=== PATIENT | male | born 1950 | race Caucasian/White ===

== ENCOUNTER 2021-02-04 14:24 | Inpatient (IN) ==
[2021-02-04 15:06] LABS: Basophils # 0.1 K/mcL (0.0-0.2); Basophils % 1.1 %; Eosinophils # 0.5 K/mcL (0.0-0.6); Eosinophils % 5.6 %; Hematocrit 41.5 % (37.5-50.1); Hemoglobin 12.2 g/dL (12.9-16.9); Immature Granulocytes % 0.4 % (0-4); Lymphocytes # 1.4 K/mcL (0.6-4.6); Lymphocytes % 17.6 %; Mean Corpuscular HGB Conc 29.4 g/dL (31.6-35.5); Mean Corpuscular Hemoglobin 29.2 pg (28.0-33.3); Mean Corpuscular Volume 99.3 fL (83.0-100.0); Mean Platelet Volume 9.5 fL (9.4-12.4); Monocytes # 1.1 K/mcL (0.0-1.3); Monocytes % 13.9 %; Platelet Count 293 K/mcL (140-400); Red Blood Count 4.18 M/mcL (4.19-5.50); Red Cell Distribution Width 12.8 % (11.5-14.5); Segmented Neutrophils % 61.4 %; White Blood Count 8.1 K/mcL (4.3-11.1)
[2021-02-04 15:22] LABS: BUN/Creatinine Ratio 25 (6-26); Blood Urea Nitrogen 27 mg/dL (8-23); Carbon Dioxide 38 mEq/L (23-29); Chloride 97 mEq/L (98-107); Glucose 113 mg/dL (70-105); Osmolality,Calculated 296 (280-300); Potassium 4.9 mEq/L (3.5-5.1); Sodium 140 mEq/L (136-145); Troponin I < 0.03 ng/mL (< 0.04); eGFR For African Americans > 60 (> 60); eGFR For Non-African Americans > 60 (> 60)
[2021-02-04] MEDS ORDERED: Naloxone 0.4 MG/ML INJ IVP PRN (15:34)
[2021-02-04 15:38] LABS: Influenza A PCR Negative (Negative); Influenza B PCR Negative (Negative); Resp. Syncytial Virus PCR Negative (Negative); SARS-CoV-2 by PCR (In House) Negative (Negative)
[2021-02-04] MEDS ORDERED: Ondansetron 4 MG/2 ML VIAL IVP PRN (16:00)
[2021-02-04] MEDS ORDERED: Melatonin 3 MG TABLET PO PRN (21:00)
[2021-02-04] MEDS ORDERED: *HR* Metoprolol 5 MG/5 ML VIAL IVP ONE (22:53)
[2021-02-05 03:09] LABS: Basophils % 1.2 %; Hemoglobin 11.7 g/dL (12.9-16.9); Immature Granulocytes % 0.4 % (0-4)
[2021-02-05 03:11] LABS: Basophils # 0.1 K/mcL (0.0-0.2); Eosinophils # 0.4 K/mcL (0.0-0.6); Eosinophils % 5.4 %; Hematocrit 39.7 % (37.5-50.1); Lymphocytes # 1.5 K/mcL (0.6-4.6); Mean Corpuscular HGB Conc 29.5 g/dL (31.6-35.5); Mean Corpuscular Hemoglobin 29.8 pg (28.0-33.3); Mean Corpuscular Volume 101.3 fL (83.0-100.0); Mean Platelet Volume 9.9 fL (9.4-12.4); Monocytes % 13.6 %; Neutrophils # 4.4 K/mcL (1.6-8.9); Platelet Count 295 K/mcL (140-400); Red Blood Count 3.92 M/mcL (4.19-5.50); Red Cell Distribution Width 12.9 % (11.5-14.5); Segmented Neutrophils % 59.4 %; White Blood Count 7.4 K/mcL (4.3-11.1)
[2021-02-05 03:37] LABS: BUN/Creatinine Ratio 31 (6-26); Blood Urea Nitrogen 28 mg/dL (8-23); Calcium 9.1 mg/dL (8.6-10.3); Carbon Dioxide 35 mEq/L (23-29); Chloride 98 mEq/L (98-107); Glucose 89 mg/dL (70-105); Osmolality,Calculated 295 (280-300); Potassium 5.5 mEq/L (3.5-5.1); Sodium 140 mEq/L (136-145); Troponin I < 0.03 ng/mL (< 0.04); eGFR For African Americans > 60 (> 60); eGFR For Non-African Americans > 60 (> 60)
[2021-02-05] MEDS: *HR* Rivaroxaban 10 MG TABLET PO SCH (08:24)
[2021-02-05] MEDS: PARoxetine 10 MG TABLET PO SCH (08:24)
[2021-02-05] MEDS: Finasteride 5 MG TABLET PO SCH (08:24)
[2021-02-05] MEDS ORDERED: DilTIAZem CD (24hr) 180 MG CAP.ER.24H PO SCH (11:30)
[2021-02-05] MEDS: Aspirin Enteric Coated 81 MG Tablet PO SCH (14:03)
[2021-02-05 17:02] LABS: Potassium 5.2 mEq/L (3.5-5.1)
[2021-02-05] MEDS ORDERED: *HR* Metoprolol 5 MG/5 ML VIAL IVP ONE (22:02)
[2021-02-05] MEDS: Levalbuterol Neb 1.25 MG/3 ML IH ONE ×2 (22:46→23:13)
[2021-02-05] MEDS ORDERED: Levalbuterol Neb 1.25 MG/3 ML ONE (22:49)
[2021-02-06 03:48] LABS: Basophils # 0.1 K/mcL (0.0-0.2); Basophils % 0.7 %; Eosinophils % 0.1 %; Hematocrit 42.7 % (37.5-50.1); Hemoglobin 11.9 g/dL (12.9-16.9); Immature Granulocytes % 0.6 % (0-4); Lymphocytes # 0.7 K/mcL (0.6-4.6); Lymphocytes % 6.3 %; Mean Corpuscular HGB Conc 27.9 g/dL (31.6-35.5); Mean Corpuscular Volume 103.9 fL (83.0-100.0); Mean Platelet Volume 9.7 fL (9.4-12.4); Monocytes # 0.9 K/mcL (0.0-1.3); Neutrophils # 9.2 K/mcL (1.6-8.9); Platelet Count 223 K/mcL (140-400); Red Blood Count 4.11 M/mcL (4.19-5.50); Red Cell Distribution Width 12.5 % (11.5-14.5); Segmented Neutrophils % 84.3 %; White Blood Count 10.9 K/mcL (4.3-11.1)
[2021-02-06 04:09] LABS: Chol/HDL Ratio 3.4 (0-4.9)
[2021-02-06 04:10] LABS: BUN/Creatinine Ratio 45 (6-26); Blood Urea Nitrogen 34 mg/dL (8-23); Calcium 8.8 mg/dL (8.6-10.3); Carbon Dioxide 37 mEq/L (23-29); Chloride 98 mEq/L (98-107); Glucose 110 mg/dL (70-105); Osmolality,Calculated 296 (280-300); Potassium 5.6 mEq/L (3.5-5.1); Sodium 139 mEq/L (136-145); eGFR For African Americans > 60 (> 60); eGFR For Non-African Americans > 60 (> 60)
[2021-02-06 04:18] LABS: Estimated Average Glucose 131 mg/dl; Hemoglobin A1C 6.2 %
[2021-02-06] MEDS: *HR* Rivaroxaban 10 MG TABLET PO SCH (07:29)
[2021-02-06] MEDS: Aspirin Enteric Coated 81 MG Tablet PO SCH (07:29)
[2021-02-06] MEDS: PARoxetine 10 MG TABLET PO SCH (07:29)
[2021-02-06] MEDS: Finasteride 5 MG TABLET PO SCH (07:29)
[2021-02-06] MEDS ORDERED: SODIUM ZIRCONIUM CYCLOSILICATE 5 GM POWD.PACK PO ONE (07:33)
[2021-02-06] MEDS ORDERED: DilTIAZem CD (24hr) 120 MG CAP.ER.24H PO SCH (09:00)
[2021-02-06] MEDS: Acetaminophen 325 MG TABLET PO PRN (09:45)
[2021-02-06] MEDS ORDERED: 0.9 % Sodium Chloride 500 ML IVC ONE ×2 (10:47→11:40)
[2021-02-06] MEDS ORDERED: *HR* Rivaroxaban 10 MG TABLET PO ONE (11:15)
[2021-02-06] MEDS ORDERED: Perflutren Lipid Microsphere 1.3 ML in 0.9 % Sodium Chloride 8.7 ML IVP PRN ×2 (12:20→12:25)
[2021-02-06] MEDS ORDERED: 0.9 % Sodium Chloride 1,000 ML IVC SCH (12:30)
[2021-02-06 16:04] LABS: Bilirubin,Urine Negative (Negative); Blood,Urine Negative (Negative); Clarity,Urine Clear (Clear); Color,Urine Light-Yellow (Yellow); Glucose,Urine (UA) Normal (Normal); Ketones,Urine Negative (Negative); Leukocyte Esterase,Urine Negative (Negative); Nitrite,Urine Negative (Negative); PH,Urine 5.5 pH Units (5.0-8.0); Protein,Urine Negative (Neg-Trace); Specific Gravity,Urine 1.016 (1.010-1.025); Urobilinogen,Urine Normal (Normal)
[2021-02-06 17:19] LABS: Folate 13.6 ng/mL (3.0-16.0)
[2021-02-06] MEDS ORDERED: traZODone 50 MG TABLET PO PRN (18:18)
[2021-02-07 02:13] LABS: BUN/Creatinine Ratio 51 (6-26); Blood Urea Nitrogen 39 mg/dL (8-23); Calcium 8.5 mg/dL (8.6-10.3); Carbon Dioxide 36 mEq/L (23-29); Chloride 97 mEq/L (98-107); Glucose 112 mg/dL (70-105); Osmolality,Calculated 296 (280-300); Potassium 4.2 mEq/L (3.5-5.1); Sodium 138 mEq/L (136-145); eGFR For African Americans > 60 (> 60); eGFR For Non-African Americans > 60 (> 60)
[2021-02-07 02:23] LABS: Basophils # 0.1 K/mcL (0.0-0.2); Basophils % 0.5 %; Eosinophils # 0.5 K/mcL (0.0-0.6); Eosinophils % 4.7 %; Hemoglobin 10.7 g/dL (12.9-16.9); Immature Granulocytes % 0.2 % (0-4); Lymphocytes # 1.7 K/mcL (0.6-4.6); Lymphocytes % 17.6 %; Mean Corpuscular HGB Conc 30.6 g/dL (31.6-35.5); Mean Platelet Volume 10.2 fL (9.4-12.4); Monocytes % 10.7 %; Neutrophils # 6.3 K/mcL (1.6-8.9); Platelet Count 234 K/mcL (140-400); Red Blood Count 3.57 M/mcL (4.19-5.50); Red Cell Distribution Width 12.3 % (11.5-14.5); Segmented Neutrophils % 66.3 %; White Blood Count 9.5 K/mcL (4.3-11.1)
[2021-02-07] MEDS: Acetaminophen 325 MG TABLET PO PRN (02:42)
[2021-02-07] MEDS: Aspirin Enteric Coated 81 MG Tablet PO SCH (08:23)
[2021-02-07] MEDS: Finasteride 5 MG TABLET PO SCH (08:24)
[2021-02-07] MEDS ORDERED: *HR* Rivaroxaban 10 MG TABLET PO SCH (09:00)
[2021-02-07 10:16] VITALS: BP 114/68; PULSE 98; TEMP 97.6; O2SAT 95
== END 2021-02-07 12:24 | disposition home or self-care (01) | DRG 189 ==
LOC: 3BNU 14:24 → EMEROOARM 14:24 → SUATTDRO 15:43 → 3BNU 16:18
PROVIDERS: ADMIT Internal Medicine; ATTEND Internal Medicine

== ENCOUNTER 2021-02-13 08:56 | Observation (INO) ==
[2021-02-13] MEDS ORDERED: *HR* Metoprolol 5 MG/5 ML VIAL IVP ONE (09:11)
[2021-02-13] MEDS: 0.9 % Sodium Chloride 500 ML IVC ONE ×2 (09:15→10:12)
[2021-02-13 09:43] LABS: Basophils % 1.1 %; Red Cell Distribution Width 13.5 % (11.5-14.5)
[2021-02-13 09:44] LABS: Basophils # 0.1 K/mcL (0.0-0.2); Eosinophils # 0.3 K/mcL (0.0-0.6); Eosinophils % 4.2 %; Hematocrit 41.4 % (37.5-50.1); Immature Granulocytes % 0.4 % (0-4); Lymphocytes % 14.3 %; Mean Corpuscular Hemoglobin 29.6 pg (28.0-33.3); Mean Corpuscular Volume 102.2 fL (83.0-100.0); Mean Platelet Volume 9.3 fL (9.4-12.4); Monocytes # 0.9 K/mcL (0.0-1.3); Monocytes % 12.9 %; Neutrophils # 4.8 K/mcL (1.6-8.9); Platelet Count 296 K/mcL (140-400); Red Blood Count 4.05 M/mcL (4.19-5.50); Segmented Neutrophils % 67.1 %; White Blood Count 7.2 K/mcL (4.3-11.1)
[2021-02-13 09:49] LABS: Prothrombin Time 22.7 Seconds (9.4-12.1)
[2021-02-13 09:52] LABS: Activated Partial Thrombo Time 36.5 Seconds (26.0-36.0)
[2021-02-13 09:58] LABS: Platelet Estimate Normal (Normal)
[2021-02-13 10:00] LABS: Blood Urea Nitrogen 33 mg/dL (8-23); Calcium 8.9 mg/dL (8.6-10.3); Carbon Dioxide 37 mEq/L (23-29); Chloride 98 mEq/L (98-107); Glucose 100 mg/dL (70-105); Osmolality,Calculated 295 (280-300); Potassium 5.7 mEq/L (3.5-5.1); Sodium 139 mEq/L (136-145); Troponin I 0.03 ng/mL (< 0.04)
[2021-02-13] MEDS ORDERED: 0.9 % Sodium Chloride 500 ML ONE (10:10)
[2021-02-13] MEDS ORDERED: 0.9 % Sodium Chloride 500 ML IV ONE ×3 (10:11→12:42)
[2021-02-13] MEDS ORDERED: 0.9 % Sodium Chloride 500 ML IVC ONE (10:18)
[2021-02-13 10:41] LABS: BUN/Creatinine Ratio 31 (6-26); eGFR For African Americans > 60 (> 60); eGFR For Non-African Americans > 60 (> 60)
[2021-02-13] MEDS ORDERED: 0.9 % Sodium Chloride 1,000 ML IVC ONE (11:04)
[2021-02-13] MEDS ORDERED: *HR* EPINEPHrine 100 MCG/10 ML SYRINGE IVP PRN (13:35)
[2021-02-13] MEDS ORDERED: *HR* EPINEPHrine 100 MCG/10 ML SYRINGE IVP ONE (13:37)
[2021-02-13] MEDS ORDERED: Acetaminophen 325 MG TABLET PO PRN (14:23)
[2021-02-13] MEDS ORDERED: Ondansetron 4 MG/2 ML VIAL IVP PRN (14:23)
[2021-02-13 15:25] LABS: Phosphorous 5.1 mg/dL (2.7-4.5)
[2021-02-13] MEDS ORDERED: Amiodarone Premix 360 MG/200 ML BAG IVC ONE (15:31)
[2021-02-13] MEDS ORDERED: SODIUM ZIRCONIUM CYCLOSILICATE 5 GM POWD.PACK PO ONE (15:35)
[2021-02-13] MEDS: Amiodarone Premix 150 MG/100 ML BAG IVPB ONE ×2 (15:57→16:09)
[2021-02-13] MEDS ORDERED: *HR* Rivaroxaban 10 MG TABLET PO SCH (17:00)
[2021-02-13] MEDS ORDERED: Amiodarone Premix 360 MG/200 ML BAG IVC SCH (21:32)
[2021-02-14] MEDS: Melatonin 3 MG TABLET PO PRN ×2 (00:01→20:50)
[2021-02-14 05:06] LABS: Hematocrit 39.2 % (37.5-50.1); Hemoglobin 11.1 g/dL (12.9-16.9); Mean Corpuscular HGB Conc 28.3 g/dL (31.6-35.5); Mean Corpuscular Hemoglobin 29.1 pg (28.0-33.3); Mean Corpuscular Volume 102.6 fL (83.0-100.0); Mean Platelet Volume 9.3 fL (9.4-12.4); Platelet Count 273 K/mcL (140-400); Red Blood Count 3.82 M/mcL (4.19-5.50); Red Cell Distribution Width 13.7 % (11.5-14.5); White Blood Count 7.1 K/mcL (4.3-11.1)
[2021-02-14 05:19] LABS: BUN/Creatinine Ratio 39 (6-26); Blood Urea Nitrogen 31 mg/dL (8-23); Carbon Dioxide 28 mEq/L (23-29); Chloride 106 mEq/L (98-107); Glucose 99 mg/dL (70-105); Osmolality,Calculated 293 (280-300); Potassium 4.8 mEq/L (3.5-5.1); Sodium 138 mEq/L (136-145); eGFR For African Americans > 60 (> 60); eGFR For Non-African Americans > 60 (> 60)
[2021-02-14] MEDS ORDERED: Perflutren Lipid Microsphere 1.3 ML in 0.9 % Sodium Chloride 8.7 ML IVP PRN (11:45)
[2021-02-14] MEDS: *HR* Rivaroxaban 10 MG TABLET PO SCH (16:41)
[2021-02-14] MEDS: PARoxetine 10 MG TABLET PO SCH (16:41)
[2021-02-15] MEDS: PARoxetine 10 MG TABLET PO SCH (09:25)
[2021-02-15 09:27] LABS: Red Cell Distribution Width 13.5 % (11.5-14.5)
[2021-02-15 09:29] LABS: Basophils # 0.1 K/mcL (0.0-0.2); Basophils % 0.7 %; Eosinophils # 0.6 K/mcL (0.0-0.6); Eosinophils % 8.6 %; Hematocrit 35.2 % (37.5-50.1); Hemoglobin 10.4 g/dL (12.9-16.9); Immature Granulocytes % 0.6 % (0-4); Lymphocytes # 1.1 K/mcL (0.6-4.6); Lymphocytes % 15.7 %; Mean Corpuscular HGB Conc 29.5 g/dL (31.6-35.5); Mean Corpuscular Volume 101.4 fL (83.0-100.0); Mean Platelet Volume 9.5 fL (9.4-12.4); Monocytes # 0.9 K/mcL (0.0-1.3); Monocytes % 12.4 %; Neutrophils # 4.4 K/mcL (1.6-8.9); Platelet Count 249 K/mcL (140-400); Red Blood Count 3.47 M/mcL (4.19-5.50); White Blood Count 7.1 K/mcL (4.3-11.1)
[2021-02-15 09:46] LABS: BUN/Creatinine Ratio 34 (6-26); Blood Urea Nitrogen 27 mg/dL (8-23); Calcium 8.3 mg/dL (8.6-10.3); Carbon Dioxide 34 mEq/L (23-29); Chloride 105 mEq/L (98-107); Glucose 91 mg/dL (70-105); Osmolality,Calculated 293 (280-300); Potassium 4.6 mEq/L (3.5-5.1); Sodium 139 mEq/L (136-145); eGFR For African Americans > 60 (> 60); eGFR For Non-African Americans > 60 (> 60)
[2021-02-15] MEDS: Hydrocortisone Sodium Succ 100 MG/2 ML VIAL IVP SCH ×3 (15:19→20:05)
[2021-02-15] MEDS: Hydrocortisone Sodium Succ 100 MG/2 ML VIAL IVP ONE ×2 (15:28)
[2021-02-15] MEDS: *HR* Rivaroxaban 10 MG TABLET PO SCH (16:46)
[2021-02-16] MEDS: Hydrocortisone Sodium Succ 100 MG/2 ML VIAL IVP SCH ×3 (02:31→15:02)
[2021-02-16 07:00] VITALS: BP 98/71; PULSE 105; TEMP 97.7
[2021-02-16] MEDS: PARoxetine 10 MG TABLET PO SCH (07:53)
[2021-02-16 09:21] VITALS: O2SAT 95
[2021-02-16 14:40] LABS: Adenovirus Not Detected (Not Detect); Bordetella Pertussis Not Detected (Not Detect); Chlamydophila pneumoniae Not Detected (Not Detect); Coronavirus 229E Not Detected (Not Detect); Coronavirus HKU1 Not Detected (Not Detect); Coronavirus NL63 Not Detected (Not Detect); Coronavirus OC43 Not Detected (Not Detect); Human Metapneumovirus Not Detected (Not Detect); Human Rhinovirus/Enterovirus Not Detected (Not Detect); Influenza A Subtype 2009 H1 Not Detected (Not Detect); Influenza B Not Detected (Not Detect); Mycoplasma pneumoniae Not Detected (Not Detect); Parainfluenza Virus 1 Not Detected (Not Detect); Parainfluenza Virus 2 Not Detected (Not Detect); Parainfluenza Virus 3 Not Detected (Not Detect); Parainfluenza Virus 4 Not Detected (Not Detect); Respiratory Syncytial Virus Not Detected (Not Detect); SARS-CoV-2 Not Detected (Not Detect)
[2021-02-16] MEDS ORDERED: Hydrocortisone Sodium Succ 100 MG/2 ML VIAL IVP ONE (18:14)
== END 2021-02-16 16:01 | disposition home or self-care (01) ==
LOC: 2ANU 08:56 → EMEROOARM 08:56 → SUATTDRO 15:00 → 2NNU 15:34 → 3NENU 02-15 03:11
PROVIDERS: ADMIT Family Medicine; ATTEND Internal Medicine

== ENCOUNTER 2021-02-25 19:35 | Observation (INO) ==
[2021-02-25 21:13] LABS: Basophils # 0.1 K/mcL (0.0-0.2); Basophils % 0.8 %; Eosinophils # 0.2 K/mcL (0.0-0.6); Eosinophils % 3.1 %; Hematocrit 38.6 % (37.5-50.1); Immature Granulocytes % 0.5 % (0-4); Lymphocytes # 0.9 K/mcL (0.6-4.6); Lymphocytes % 14.7 %; Mean Corpuscular Hemoglobin 29.6 pg (28.0-33.3); Mean Corpuscular Volume 101.8 fL (83.0-100.0); Mean Platelet Volume 10.2 fL (9.4-12.4); Monocytes # 0.9 K/mcL (0.0-1.3); Monocytes % 14.9 %; Platelet Count 181 K/mcL (140-400); Red Blood Count 3.79 M/mcL (4.19-5.50); Red Cell Distribution Width 14.7 % (11.5-14.5); White Blood Count 6.1 K/mcL (4.3-11.1)
[2021-02-25 21:18] LABS: Hemoglobin 11.2 g/dL (12.9-16.9)
[2021-02-25 21:34] LABS: BUN/Creatinine Ratio 32 (6-26); Blood Urea Nitrogen 23 mg/dL (8-23); Calcium 8.8 mg/dL (8.6-10.3); Carbon Dioxide > 45 mEq/L (23-29); Chloride 96 mEq/L (98-107); Glucose 74 mg/dL (70-105); Osmolality,Calculated 300 (280-300); Sodium 144 mEq/L (136-145); Troponin I < 0.03 ng/mL (< 0.04); eGFR For African Americans > 60 (> 60); eGFR For Non-African Americans > 60 (> 60)
[2021-02-25 22:14] LABS: Bilirubin,Urine Negative (Negative); Blood,Urine Negative (Negative); Clarity,Urine Clear (Clear); Color,Urine Yellow (Yellow); Glucose,Urine (UA) Normal (Normal); Ketones,Urine Negative (Negative); Leukocyte Esterase,Urine Negative (Negative); Nitrite,Urine Negative (Negative); Protein,Urine Trace mg/dL (Neg-Trace); Specific Gravity,Urine 1.023 (1.010-1.025); Urobilinogen,Urine Normal (Normal)
[2021-02-25 22:19] LABS: VBG HCO3 49 mEq/L (21-27); VBG PCO2 98 mmHg (41-51); VBG PH 7.31 pH Units (7.32-7.42); VBG PO2 38 mmHg (25-50)
[2021-02-25] MEDS ORDERED: Furosemide 20 MG/2 ML VIAL IVP ONE (22:44)
[2021-02-25] MEDS ORDERED: Isovue-370 500 ML BOTTLE IVP ONE (22:45)
[2021-02-26 02:15] LABS: VBG HCO3 49 mEq/L (21-27); VBG PCO2 88 mmHg (41-51); VBG PH 7.36 pH Units (7.32-7.42); VBG PO2 27 mmHg (25-50)
[2021-02-26] MEDS ORDERED: Melatonin 3 MG TABLET PO PRN (03:04)
[2021-02-26] MEDS ORDERED: Naloxone 0.4 MG/ML INJ IVP PRN (03:04)
[2021-02-26 04:24] VITALS: TEMP 97.5
[2021-02-26] MEDS ORDERED: *HR* Rivaroxaban 10 MG TABLET PO SCH (09:00)
[2021-02-26] MEDS ORDERED: PARoxetine 10 MG TABLET PO SCH (09:00)
[2021-02-26] MEDS ORDERED: Hydrocortisone 10 MG TABLET PO SCH (09:00)
[2021-02-26] MEDS ORDERED: Finasteride 5 MG TABLET PO SCH (09:00)
[2021-02-26 11:08] LABS: Basophils % 0.6 %; Eosinophils # 0.3 K/mcL (0.0-0.6); Eosinophils % 4.4 %; Hematocrit 38.7 % (37.5-50.1); Hemoglobin 11.6 g/dL (12.9-16.9); Immature Granulocytes % 0.3 % (0-4); Lymphocytes # 1.2 K/mcL (0.6-4.6); Mean Corpuscular Hemoglobin 30.3 pg (28.0-33.3); Mean Platelet Volume 10.4 fL (9.4-12.4); Monocytes % 14.4 %; Neutrophils # 4.1 K/mcL (1.6-8.9); Platelet Count 172 K/mcL (140-400); Red Blood Count 3.83 M/mcL (4.19-5.50); Red Cell Distribution Width 14.9 % (11.5-14.5); Segmented Neutrophils % 62.3 %; White Blood Count 6.7 K/mcL (4.3-11.1)
[2021-02-26 11:12] LABS: Prothrombin Time 22.7 Seconds (9.4-12.1)
[2021-02-26 11:32] LABS: Alanine Aminotransferase 18 Units/L (7-52); Albumin 3.1 g/dL (3.5-5.7); Albumin/Globulin Ratio 1.1 (1.1-2.2); Alkaline Phosphatase 54 Units/L (34-104); Aspartate Amino Transferase 15 Units/L (13-39); BUN/Creatinine Ratio 30 (6-26); Bilirubin,Total 0.4 mg/dL (0.3-1.0); Blood Urea Nitrogen 23 mg/dL (8-23); Calcium 8.9 mg/dL (8.6-10.3); Carbon Dioxide > 45 mEq/L (23-29); Chloride 94 mEq/L (98-107); Globulin 2.8 g/dL (2.4-3.5); Glucose 115 mg/dL (70-105); Magnesium 2.1 mg/dL (1.6-2.6); Osmolality,Calculated 305 (280-300); Phosphorous 3.6 mg/dL (2.7-4.5); Potassium 3.8 mEq/L (3.5-5.1); Sodium 145 mEq/L (136-145); Total Protein 5.9 g/dL (6.4-8.9); eGFR For African Americans > 60 (> 60); eGFR For Non-African Americans > 60 (> 60)
[2021-02-26 12:17] VITALS: BP 115/75; PULSE 65; O2SAT 91
[2021-03-01] MEDS ORDERED: Hydrocortisone 10 MG TABLET PO SCH (09:00)
== END 2021-02-26 13:46 | disposition home or self-care (01) ==
LOC: EMEROOARM 19:35 → 3ANU 19:35 → SUATTDRO 02-26 03:00 → 3ANU 02-26 04:03
PROVIDERS: ADMIT Internal Medicine; ATTEND Internal Medicine